=== PATIENT | male | born 1990 | race Caucasian/White ===

== ENCOUNTER 2022-03-16 14:43 | Emergency (ER) | payer BC, SELFPAY ==
[2022-03-16 14:44] VITALS: BP 138/99; PULSE 107; RESP 16; TEMP 36.7; O2SAT 99; BMI 27.4
[2022-03-16] MEDS: 0.9% Normal Saline 1,000 ML 1000 ML IV (15:27)
--- NOTE | 2022-03-16 15:31 | EX.ED.DYSGE1 ---
HPI History of Present Illness Chief Complaint: Nausea/Vomiting/Diarrhea Informant: patient Narrative Narrative: 31-year-old male presenting to the emergency room with vomiting and diarrhea. Patient states that he has been down in labor and delivery was due to go home today as his and child were being discharged. He notes clear watery diarrhea. No mucus or blood in the vomit or in stool. He notes chills but denies any cough sore throat runny nose. He has not reported a fever. He thinks that someone down there was recently ill with similar symptoms. He states that last night they did order takeout and does wonder if there could have been bad food but his does not have any symptoms PFSH PFSH Medical History no medical history Home Medications ondansetron 4 mg PO Q6H PRN PRN #15 tab 03/16/22 [Rx Last Taken Unknown] Allergy/AdvReac Type Severity Reaction Status Date / Time No Known Allergies Allergy Verified 03/16/22 14:47 Social History (Updated 03/16/22 @ 15:[address] Wm Ortega, DO) current gender identity: male Smoking Status: Never smoker ROS ROS ED Constitutional Constitutional ED: Reports chills; Denies fever(s) or weight loss Eyes Eyes: Denies change in vision or diplopia ENT ENT ED: Denies ear pain, rhinorrhea or sore throat Cardiovascular Cardiovascular: Denies chest pain, orthopnea, palpitations or racing heartbeat Respiratory/Chest Respiratory/Chest: Denies cough, dyspnea or orthopnea Gastrointestinal Gastrointestinal: Reports diarrhea, nausea and vomiting; Denies abdominal pain Genitourinary Genitourinary ED: Denies dysuria, hematuria or urinary frequency Musculoskeletal Musculoskeletal: Denies arthralgias or myalgias Integumentary Denies abscess or rash Neurologic Neurologic: Denies headache(s) or weakness Psychiatric Psychiatric: Denies anxiety, depression, suicidal ideation or suicidal thoughts Endocrine Endocrinology: Denies polydipsia, polyphagia or polyuria Allergic/Immunologic Allergic/Immunologic ED: Denies mouth swelling, tongue swelling or urticaria EXAM Physical Exam Const Vital Signs: 03/16/22 14:44 Temperature 98.1 F Temperature Source Temporal Pulse Rate 107 H Respiratory Rate 16 Blood Pressure 138/99 H Blood Pressure Mean 112 Pulse Ox 99 Oxygen Delivery Method Room Air Positive well nourished and well developed General Appearance ED: well developed HEENT Reports normocephalic, head/scalp atraumatic, TM's clear and moist mucous membranes Negative for trauma Tympanic Membrane ED: Yes TM's clear Eyes PERRL and EOMs intact bilaterally Neck no lymphadenopathy, supple and no JVD Resp normal respiratory effort and clear to auscultation bilaterally Cardio regular rate, regular rhythm and no murmurs GI normal to inspection, nondistended, normoactive bowel sounds and non-tender Palpation: soft Back/Spine no CVA tenderness and normal ROM Lumbar Spine / Lower Back: Negative for lumbar spinal tenderness Extremity normal to inspection General Extremety ED: Negative for edema General Extremity: Negative for edema Neuro oriented x3 and CN's II-XII intact bilaterally Sensorium / Orientation: alert Motor Exam: strength 5/5 throughout Psych mental status grossly normal Mood & Affect: Negative for depressed or tearful Skin no rashes or lesions noted and no wounds MDM MDM MDM Narrative Medical decision making narrative: Patient received IV fluids and Zofran. Rapid COVID and flu were negative. Patient will be discharged home with continued supportive care. I will write for Zofran. Return if worsening or concerns Discharge Plan Triage Chief Complaint: Nausea/Vomiting/Diarrhea ED Provider: Wm Ortega Dx/Rx/DC Orders Clinical Impression: Gastroenteritis Instructions: ED Gastroenteritis, Viral (Adult) Prescriptions: New ondansetron [ondansetron] 4 MG tablet 4 mg PO Q6H PRN PRN (Reason: Nausea) Qty: 15 RF: 0 Referrals: Mathieu Mark MD [STAFF PHYSICIAN] - As Needed Disposition Disposition: Home, Self Care
[2022-03-16] MEDS: Ondansetron 4 MG/2 ML Vial IV (15:32)
== END 2022-03-16 16:50 | disposition home or self-care (01) ==
PROVIDERS: Emergency Provider Emergency Medicine; Visit Provider Emergency Medicine
DX: K52.9 Noninfective gastroenteritis and colitis, unspecified (principal)
CPT/HCPCS: 87428; 96361; 96374; 99283; J7030; A4216; J2405